=== PATIENT | female | born 1930 | race Caucasian/White ===

== ENCOUNTER 2016-12-14 18:01 | Emergency (ER) | payer OTHER ==
--- NOTE | 2016-12-14 19:00 | REPUSA ---
CLINICAL HISTORY: Trauma. TECHNIQUE: Multiple axial CT images were obtained through the brain without IV contrast material. COMMENTS: There is normal configuration of sella turcica. There are no intra or extra-axial collections. There is no mass effect or midline shift. There is no evidence of hematoma formation. No hydrocephalus is p resent. The ventricles are symmetrical. No abnormal calcifications are present. There is diffuse age-appropriate cerebellar and cerebral atrophy with proportionally dilated ventricl es and cortical sulci. There are bilateral confluent periventricular and subcortical white matter hypolucencies compatible w ith chronic microvascular disease. Otherwise, no significant focal abnormalities are seen either in the posterior fossa or supratentoria l compartment. IMPRESSION: 1. Cerebellar and cerebral atrophy. 2. Chronic microvascular disease. 3. No evidence of acute intracranial pathology. Thank you for your kind referral of this patient.
--- NOTE | 2016-12-14 19:10 | REPUSA ---
CLINICAL HISTORY: Neck pain. Trauma TECHNIQUE: Multiple axial images were obtained through the cervical spine. Images were also reconstru cted in coronal and sagittal planes. The study was performed without IV contrast. COMMENTS: There is no fracture or spondylolisthesis visualized. The paraspinal soft tissues are unremarkable. T here are no lytic or blastic lesions. Straightening of cervical lordosis is seen, suggesting muscular spasm. There is evidence of multileve l disk disease, demonstrated by this is most severe at C3-C4 and C5-6 where more moderate loss of dis c side present and broad-based posterior disc is convex is seen producing moderate to severe bilatera l foraminal and canal stenosis osteophytosis and endplate sclerosis. IMPRESSION: 1. No fracture or spondylolisthesis. 2. Straightening of cervical lordosis is seen, suggesting muscular spasm. 3. Multilevel spondylosis most severe at C3-C4 and C5-6. Thank you for your kind referral of this patient.
--- NOTE | 2016-12-14 19:10 | REPUSA ---
HISTORY: Trauma. TECHNIQUE: Multiple thin section helically-acquired axially-displayed and helically acquired coronall y displayed computed tomographic images of the face are obtained from the mandible through the fronta l sinuses, with images obtained at soft tissue and bone window. 2D reformatted images were performed. FINDINGS: Normal bony mineralization. No fractures. Left cheek swelling is seen. Normal orbits. Left maxillary sinusitis is seen. Normal, clear paranasal sinuses otherwise. Normal oral and nasal cavities. Normal infratemporal fossa and deep parapharyngeal spaces with normal muscles of mastication. Normal parotid and submandibular glands. IMPRESSION: Left cheek swelling is seen. Left maxillary sinusitis Thank you for your kind referral of this patient
[2016-12-14] MEDS ORDERED: MORPHINE 2 MG/ML 1ML SYRINGE As Ordered ONE ×2 (19:50→21:05)
[2016-12-14] MEDS ORDERED: ONDANSETRON 4MG/2ML VIAL (J2405) As Ordered ONE (19:50)
[2016-12-14 20:15] LABS: BASO % 0.5 % (0.0-1.0); EOS # 0.2 K/mm3 (0.0-0.50); EOS % 1.6 % (0.0-3.0); LARGE UNSTAINED CELL # 0.1 K/mm3 (0.0-0.4); LARGE UNSTAINED CELL % 1.1 % (0.0-4.0); LYMPH # 1.2 K/mm3 (1.5-4.5); LYMPH % 10.4 % (24.0-44.0); MEAN CORPUSCULAR HGB CONC 32.4 g/dl (32.0-36.5); MEAN CORPUSCULAR VOLUME 95.7 fl (80.0-96.0); MONO # 0.5 K/mm3 (0.0-0.8); MONO % 5.1 % (0.0-5.0); NEUTROPHILS # 8.3 K/mm3 (1.8-7.7); NEUTROPHILS % 81.4 % (36.0-66.0); PLATELET COUNT, AUTOMATED 208 k/mm3 (150-450); RED CELL DISTRIBUTION WIDTH 13.5 % (11.5-14.5); WHITE BLOOD COUNT 10.2 K/mm3 (4.0-10.0)
[2016-12-14 20:21] LABS: INR 0.93
[2016-12-14 20:37] LABS: ALBUMIN 3.5 GM/DL (3.2-5.2); ALBUMIN/GLOBULIN RATIO 1.25 (1.00-1.93); ALKALINE PHOSPHATASE 121 U/L (45-117); ALT/SGPT 21 U/L (12-78); ANION GAP 9 MEQ/L (8-16); AST/SGOT 20 U/L (15-37); BILIRUBIN,DIRECT < 0.1 MG/DL (0.0-0.2); BILIRUBIN,TOTAL 0.4 MG/DL (0.2-1.0); BLOOD UREA NITROGEN 25 MG/DL (7-18); CALCIUM LEVEL 9.8 MG/DL (8.8-10.2); CARBON DIOXIDE LEVEL 25 MEQ/L (21-32); CHLORIDE LEVEL 109 MEQ/L (98-107); CREATININE FOR GFR 1.18 MG/DL (0.55-1.02); GLOMERULAR FILTRATION RATE 46.1 (>32); GLUCOSE, FASTING 107 MG/DL (83-110); POTASSIUM SERUM 4.7 MEQ/L (3.5-5.1); SODIUM LEVEL 143 MEQ/L (136-145); TOTAL PROTEIN 6.3 GM/DL (6.4-8.2)
[2016-12-14] MEDS ORDERED: NORCO 5/325MG TABLET (BULK) As Ordered ONE (21:07)
--- NOTE | 2016-12-14 22:15 | EDDOCDS ---
Nurse's Notes [facility] Name: Susan Mantilla Age: 86 yrs Sex: Female : 1930 Arrival Date: 12/14/2016 Time: 18:01 Bed 17 Private MD: Diagnosis: Fall on same level from slipping, tripping and stumbling;Contusion of left eyelid and periocular area;Contusion of lip;Contusion of nose Presentation: 12/14 18:04 Presenting complaint: EMS states: lightheaded while coming out of the bathroom and fell hs1 to the floor. Patient normally confused per family members at the house per EMS. Patient has black eye starting and bruising to left eye seen. Patient is not taking any blood thinners. Adult Sepsis Screening: The patient does not have new or worsening altered mentation. Patient's respiratory rate is less than 22. Systolic blood pressure is greater than 100. Patient has a qSOFA score of 0- Negative Sepsis Screen. Suicide/Homicide risk assessment- Unable to assess, the patient has an altered level of consciousness. Status: Patient is not a direct customer service representative or dependent. Transition of care: patient was not received from another setting of care. 18:04 Acuity: KOFI Level 3 hs1 18:04 Method Of Arrival: Ambulance hs1 Triage Assessment: 18:14 General: Appears in no apparent distress, Behavior is cooperative. Pain: Unable to use hs1 pain scale. Does not appear to understand pain scale. Neurological: Level of Consciousness is awake, alert, obeys commands, Oriented to person, per family member patient history of Alzheimer's. Per family at bedside patient confused and having a spell of worsening confusion. . Respiratory: No deficits noted. Airway is patent Respiratory effort is even, unlabored, Respiratory pattern is regular, symmetrical. Derm: Bruising that is bright red, dark purple, on left eye, mouth and neck. Historical: - Allergies: No known drug Allergies; - Home Meds: 1. acetaminophen-codeine 300-30 mg Oral tab 1 tab nightly 2. fluoxetine 40 mg Oral cap 1 cap once daily 3. aspirin 81 mg Oral tab 1 tab once daily 4. levothyroxine 88 mcg Oral cap 1 cap nightly 5. quetiapine 50 mg oral tab 1 tab daily 6. Colace 100 mg oral cap 2 caps nightly 7. FiberCon 625 mg Oral tab 625 mg as needed - PMHx: Dementia; Thyroid problem; Arthritis; Alzheimers; - PSHx: Bladder suspension; Hysterectomy; - Social history: Smoking status: Patient states was never smoker of tobacco. No barriers to communication noted, The patient speaks fluent Frisian, Speaks appropriately for age. - Family history: Not pertinent. - : The pt / caregiver states he / she is not on anticoagulants. Home medication list is obtained from the patient, Unable to Verify Home Med List with the patient / caregiver. - Exposure Risk Screening:: None identified. Screenin:19 Screening information is obtained from family members. Fall risk: At risk due to age, hs1 apparent cognitive impairment, prior history of falls, The following interventions are performed due to a positive Fall Risk Screen: Fall Risk is added to Special Handling on the patient Summary Screen. A Fall Risk Bracelet was applied to the patient. Side Rails are placed in the up position. A Call Ballard is given with instruction to call for help when getting out of bed. Fall Alert bracelet is placed on the patient. Assistance ADL's: Requires assistance with meal preparation, this assistance is provided by family members, bathing, assistance is provided by family members, housework, assistance is provided by family members, medication administration, assistance is provided by family members. Abuse/DV Screen: The patient / caregiver reports he/she is: not in a situation that causes fear, pain or injury. Nutritional screening: No deficits noted. Advance Directives: Currently, there is a health care proxy, Federica Maxwell. home support is adequate. Assessment: 18:51 General: Appears in no apparent distress, Behavior is pleasant, confused. . Pain: hs1 Location: left eye and mouth. Respiratory: Airway is patent Respiratory effort is even, unlabored, Respiratory pattern is regular, symmetrical. Derm: Skin is pink, warm & dry. normal. 19:30 General: Appears in no apparent distress, Behavior is cooperative. Pain: Location: neck js15 and mouth and left eye; "all over" Pain currently is 6 out of 10 on a pain scale. Neurological: Level of Consciousness is awake, alert, confused, Oriented to person. Cardiovascular: Rhythm is regular. Respiratory: Airway is patent Respiratory effort is even, unlabored, Respiratory pattern is regular, symmetrical, Breath sounds are clear bilaterally. Derm: Skin is pink, warm & dry. Injury Description: Abrasion sustained to mouth Bruise sustained to left eye. 20:30 Reassessment: Patient appears in no apparent distress at this time. Pt resting on js15 stretcher with daughter at bedside; respirations even and unlabored; skin pink, warm, dry. 21:37 Reassessment: Patient appears in no apparent distress at this time. Pt awake and alert, js15 resting on stretcher, talking to daughter at bedside; respirations even and unlabored; skin pink, warm, dry. Vital Signs: 18:12 BP 144 / 60; Pulse 68; Resp 18; Pulse Ox 95% on R/A; Weight 72.57 kg; Height 5 ft. 8 hs1 in. (172.72 cm); 19:05 Pulse 64 MON; Pulse Ox 99% ; js15 19:06 BP 122 / 59 (auto/); js15 19:35 Pulse 64 MON; Pulse Ox 98% ; js15 19:36 BP 110 / 57 (auto/); js15 20:06 BP 126 / 57 (auto/); js15 20:06 Pulse 64 MON; Pulse Ox 99% ; js15 20:36 Pulse 64 MON; Pulse Ox 98% ; js15 20:36 BP 124 / 56 (auto/); js15 21:05 Pulse 66 MON; Pulse Ox 97% ; js15 21:06 BP 114 / 58 (auto/); js15 21:36 BP 125 / 61 (auto/); js15 21:36 Pulse 70 MON; Pulse Ox 99% ; js15 21:59 BP 117 / 58 (auto/); js15 22:00 Pulse 70 MON; Resp 20; Temp 98.2(O); Pulse Ox 99% ; Pain 6/10; js15 18:12 Body Mass Index 24.33 (72.57 kg, 172.72 cm) hs1 Vitals: 18:12 Log In Time N/A - ambulance arrival. hs1 ED Course: 18:02 Patient visited by Lili Conklin, Branch Maker. deg 18:02 Cordelia Smyth, ELIZABETH is Primary Nurse. deg 18:02 Patient moved to Waiting deg 18:02 Patient moved to 17 deg 18:08 [facility]. ke 18:09 Triage Initiated hs1 18:10 Patient visited by Ramakrishna Christiansen FNP. ke 18:20 The patient / caregiver is instructed regarding the plan of care and ED course. hs1 18:25 Patient visited by Ramakrishna Christiansen FNP. ke 19:04 Patient visited by James Martinez PCA. kb5 19:10 [facility] Payment Agreement was scanned into [email or web address] and attached to record. ks16 19:18 EKG done. (by ED staff). Reviewed by Ramakrishna MEEHAN. kb5 19:19 Patient visited by James Martinez PCA. kb5 19:25 CT Head Without Contrast Returned. EDMS 19:25 CT Maxilofacial W/out Contrast Returned. EDMS 19:25 CT Spine,Cervical W/o Contrast Returned. EDMS 19:30 Inserted saline lock: 20 gauge in right wrist. js15 19:48 Patient visited by Ramakrishna Christiansen FNP. ke 20:12 Patient visited by Ramakrishna Christiansen FNP. ke 20:35 Patient visited by Ramakrishna Christiansen FNP. ke 20:43 Primary Nurse role handed off by Cordelia Smyth RN kim 21:39 No procedures done that require assistance. js15 Administered Medications: 19:56 Drug: morphine 2 mg [morphine 2 mg/mL intravenous cartridge (1 mL)] Route: IVP; Site: js15 right wrist; 19:57 Drug: Ondansetron 4 mg [ondansetron HCl 2 mg/mL intravenous solution (2 mL)] Route: js15 IVP; Site: right wrist; 21:34 Drug: morphine 2 mg [morphine 2 mg/mL intravenous cartridge (1 mL)] Route: IVP; Site: js15 right wrist; 21:40 Drug: HYDROcodone-acetaminophen 4 pack- 1 packets [hydrocodone 5 mg-acetaminophen 325 js15 mg tablet (1 tabs)] {Co-Signature: ttb (Shayla Cain RN).} Route: PO; Order Results: Lab Order: CBC with Diff; SPEC'M 12/14/16 20:02 Test: WHITE BLOOD COUNT; Value: 10.2; Range: 4.0-10.0; Abnormal: Above high normal; Units: K/mm3; Status: F Test: RED BLOOD COUNT; Value: 3.78; Range: 4.00-5.40; Abnormal: Below low normal; Units: M/mm3; Status: F Test: HEMOGLOBIN; Value: 11.7; Range: 12.0-16.0; Abnormal: Below low normal; Units: g/dl; Status: F Test: HEMATOCRIT; Value: 36.2; Range: 36.0-47.0; Units: %; Status: F Test: MEAN CORPUSCULAR VOLUME; Value: 95.7; Range: 80.0-96.0; Units: fl; Status: F Test: MEAN CORPUSCULAR HEMOGLOBIN; Value: 31.0; Range: 27.0-33.0; Units: pg; Status: F Test: MEAN CORPUSCULAR HGB CONC; Value: 32.4; Range: 32.0-36.5; Units: g/dl; Status: F Test: RED CELL DISTRIBUTION WIDTH; Value: 13.5; Range: 11.5-14.5; Units: %; Status: F Test: PLATELET COUNT, AUTOMATED; Value: 208; Range: 150-450; Units: k/mm3; Status: F Test: NEUTROPHILS %; Value: 81.4; Range: 36.0-66.0; Abnormal: Above high normal; Units: %; Status: F Test: LYMPH %; Value: 10.4; Range: 24.0-44.0; Abnormal: Below low normal; Units: %; Status: F Test: MONO %; Value: 5.1; Range: 0.0-5.0; Abnormal: Above high normal; Units: %; Status: F Test: EOS %; Value: 1.6; Range: 0.0-3.0; Units: %; Status: F Test: BASO %; Value: 0.5; Range: 0.0-1.0; Units: %; Status: F Test: LARGE UNSTAINED CELL %; Value: 1.1; Range: 0.0-4.0; Units: %; Status: F Test: NEUTROPHILS #; Value: 8.3; Range: 1.8-7.7; Abnormal: Above high normal; Units: K/mm3; Status: F Test: LYMPH #; Value: 1.2; Range: 1.5-4.5; Abnormal: Below low normal; Units: K/mm3; Status: F Test: MONO #; Value: 0.5; Range: 0.0-0.8; Units: K/mm3; Status: F Test: EOS #; Value: 0.2; Range: 0.0-0.50; Units: K/mm3; Status: F Test: BASO #; Value: 0.0; Range: 0.0-0.2; Units: K/mm3; Status: F Test: LARGE UNSTAINED CELL #; Value: 0.1; Range: 0.0-0.4; Units: K/mm3; Status: F Lab Order: Cardiac Injury Profile; SPEC'M 12/14/16 20:02 Test: CPK CREATINE PHOSPHOKINASE; Value: 57; Range: 26-192; Units: U/L; Status: F Test: CK-MB VALUE MASS; Value: 1.9; Range: 0.0-3.6; Units: NG/ML; Status: F Test: MB/CK RELATIVE INDEX; Value: 3.33; Range: < OR =4; Status: F Test Note: ; DIAGNOSIS CRITERIA MMB ng/ml Relative Index (RI) NON-AMI < or = 5 N/A NASH ZONE > 5 < or = 4 AMI > 5 > 4 Lab Order: Liver Profile; SPEC'M 12/14/16 20:02 Test: AST/SGOT; Value: 20; Range: 15-37; Units: U/L; Status: F Test: ALT/SGPT; Value: 21; Range: 12-78; Units: U/L; Status: F Test: ALKALINE PHOSPHATASE; Value: 121; Range: 45-117; Abnormal: Above high normal; Units: U/L; Status: F Test: BILIRUBIN,TOTAL; Value: 0.4; Range: 0.2-1.0; Units: MG/DL; Status: F Test: BILIRUBIN,DIRECT; Value: < 0.1; Range: 0.0-0.2; Units: MG/DL; Status: F Test: TOTAL PROTEIN; Value: 6.3; Range: 6.4-8.2; Abnormal: Below low normal; Units: GM/DL; Status: F Test: ALBUMIN; Value: 3.5; Range: 3.2-5.2; Units: GM/DL; Status: F Test: ALBUMIN/GLOBULIN RATIO; Value: 1.25; Range: 1.00-1.93; Status: F Lab Order: MED Profile; SPEC'M 12/14/16 20:02 Test: GLUCOSE, FASTING; Value: 107; Range: 83-110; Units: MG/DL; Status: F Test: BLOOD UREA NITROGEN; Value: 25; Range: 7-18; Abnormal: Above high normal; Units: MG/DL; Status: F Test: CREATININE FOR GFR; Value: 1.18; Range: 0.55-1.02; Abnormal: Above high normal; Units: MG/DL; Status: F Test: GLOMERULAR FILTRATION RATE; Value: 46.1; Range: >32; Status: F Test: SODIUM LEVEL; Value: 143; Range: 136-145; Units: MEQ/L; Status: F Test: POTASSIUM SERUM; Value: 4.7; Range: 3.5-5.1; Units: MEQ/L; Status: F Test: CHLORIDE LEVEL; Value: 109; Range: 98-107; Abnormal: Above high normal; Units: MEQ/L; Status: F Test: CARBON DIOXIDE LEVEL; Value: 25; Range: 21-32; Units: MEQ/L; Status: F Test: ANION GAP; Value: 9; Range: 8-16; Units: MEQ/L; Status: F Test: CALCIUM LEVEL; Value: 9.8; Range: 8.8-10.2; Units: MG/DL; Status: F Test Note: ; Units are mL/min/1.73 m2 Chronic Kidney Disease Staging per NKF: Stage I & II GFR >=60 Normal to Mildly Decreased Stage III GFR 30-59 Moderately Decreased Stage IV GFR 15-29 Severely Decreased Stage V GFR <15 Very Little GFR Left ESRD GFR <15 on RDA Lab Order: Thyroid Stimulating Hormone; SPEC'M 12/14/16 20:02 Test: THYROID STIMULATING HORMONE; Value: 0.747; Range: 0.358-3.740; Units: uIU/ML; Status: F Lab Order: Troponin; SPEC'M 12/14/16 20:02 Test: TROPONIN I; Value: < 0.02; Range: < 0.10; Units: NG/ML; Status: F Test Note: ; Troponin I Reference Interval for IntervalZero LOCI: 99th Percentile= 0.00-0.045 ng/ml Risk Stratification: <= 0.10 ng/ml Decreased Risk for Adverse Clinical Events. 0.10-1.50 ng/ml Increased Risk for Adverse Clinical Events. Evaluation of additional criterion and/or repeat testing in 2-6 hours is suggested to rule out myocardial damage. >= 1.50 ng/ml Indicative of Myocardial Injury. Lab Order: PT/INR; SPEC'M 12/14/16 20:02 Test: PROTHROMBIN TIME; Value: 12.6; Range: 12.3-14.5; Units: SECONDS; Status: F Test: INR; Value: 0.93; Status: F Test Note: ; THERAPUTIC HUMAN INR VALUES INDICATIONS NORMAL RANGES PROPHYLAXIS/TREATMENT OF: VENOUS THROMBOSIS 2.0-3.0 PULMONARY EMBOLISM 2.0-3.0 PREVENTION OF SYSTEMIC EMBOLISM FROM: TISSUE HEART VALVES 2.0-3.0 ACUTE MYOCARDIAL INFARCTION 2.0-3.0 VALVULAR HEART DISEASE 2.0-3.0 ATRIAL FIBRILLATION 2.0-3.0 MECHANICAL VALVES(HIGH RISK) 2.5-3.5 RECURRENT MYOCARDIAL INFARCTION 2.5-3.5 Lab Order: Fingerstick Blood Sugar; SPEC'M 12/14/16 19:45 Test: BEDSIDE GLUCOSE; Value: 92; Range: 83-110; Units: MG/DL; Status: F Radiology Order: CT Head Without Contrast Test: CT Head Without Contrast REASON FOR EXAMINATION: Trauma; ; CLINICAL HISTORY: Trauma.; TECHNIQUE: Multiple axial CT images were obtained through the brain without IV contrast material.; COMMENTS:; There is normal configuration of sella turcica. There are no intra or extra-axial collections. There; is no mass effect or midline shift. There is no evidence of hematoma formation. No hydrocephalus is p; resent. The ventricles are symmetrical. No abnormal calcifications are present.; There is diffuse age-appropriate cerebellar and cerebral atrophy with proportionally dilated ventricl; es and cortical sulci.; There are bilateral confluent periventricular and subcortical white matter hypolucencies compatible w; ith chronic microvascular disease.; Otherwise, no significant focal abnormalities are seen either in the posterior fossa or supratentoria; l compartment.; IMPRESSION:; 1. Cerebellar and cerebral atrophy.; 2. Chronic microvascular disease.; 3. No evidence of acute intracranial pathology.; Thank you for your kind referral of this patient.; ; ; Radiology Order: CT Maxilofacial W/out Contrast Test: CT Maxilofacial W/out Contrast REASON FOR EXAMINATION: Trauma; ; HISTORY: Trauma.; TECHNIQUE: Multiple thin section helically-acquired axially-displayed and helically acquired coronall; y displayed computed tomographic images of the face are obtained from the mandible through the fronta; l sinuses, with images obtained at soft tissue and bone window. 2D reformatted images were performed.; ; FINDINGS:; Normal bony mineralization. No fractures. Left cheek swelling is seen.; Normal orbits.; Left maxillary sinusitis is seen. Normal, clear paranasal sinuses otherwise.; Normal oral and nasal cavities.; Normal infratemporal fossa and deep parapharyngeal spaces with normal muscles of mastication. Normal; parotid and submandibular glands.; IMPRESSION:; Left cheek swelling is seen.; Left maxillary sinusitis; Thank you for your kind referral of this patient; ; Radiology Order: CT Spine,Cervical W/o Contrast Test: CT Spine,Cervical W/o Contrast REASON FOR EXAMINATION: Trauma; ; CLINICAL HISTORY: Neck pain. Trauma; TECHNIQUE: Multiple axial images were obtained through the cervical spine. Images were also reconstru; cted in coronal and sagittal planes. The study was performed without IV contrast.; COMMENTS:; There is no fracture or spondylolisthesis visualized. The paraspinal soft tissues are unremarkable. T; here are no lytic or blastic lesions.; Straightening of cervical lordosis is seen, suggesting muscular spasm. There is evidence of multileve; l disk disease, demonstrated by this is most severe at C3-C4 and C5-6 where more moderate loss of dis; c side present and broad-based posterior disc is convex is seen producing moderate to severe bilatera; l foraminal and canal stenosis osteophytosis and endplate sclerosis.; IMPRESSION:; 1. No fracture or spondylolisthesis.; 2. Straightening of cervical lordosis is seen, suggesting muscular spasm.; 3. Multilevel spondylosis most severe at C3-C4 and C5-6.; Thank you for your kind referral of this patient.; ; Outcome: 20:52 Discharge ordered by Provider. ke 21:38 Discharge Assessment: Patient awake and alert. patient administered narcotics - yes. Pt js15 provided with safe discharge. The following High Risk Discharge criteria are identified: None. Discharged to home via wheelchair, with family. Condition: unchanged. Discharge instructions given to patient, daughter Instructed on discharge instructions, follow up and referral plans. medication usage, no driving heavy equipment, Rest, Ice, Compression and Elevation. Demonstrated understanding of instructions, medications, Pt was receptive of discharge instructions/ teaching. Prescriptions given X 1. CT Study completed. Property sent home with patient. 22:14 Patient left the ED. js15 Signatures: Dispatcher [employer] EDMS Lili Conklin, Branch Maker Unit deg Ramakrishna Christiansen, RN LPN CNA RN LPN CNA James Sage, MAIL HANDLER EQUIPMENT OPERATOR MAIL HANDLER EQUIPMENT OPERATOR kb5 Cordelia Smyth, RN RN hs1 Mia Damon, MAIL HANDLER EQUIPMENT OPERATOR MAIL HANDLER EQUIPMENT OPERATOR Che Almendarez RN RN js15 Shannan Snider, Reg Reg ks16 Shayla Cain RN ttb MTDD
--- NOTE | 2016-12-14 22:15 | EDDOCDS ---
Physician Documentation [facility] Name: Susan Mantilla Age: 86 yrs Sex: Female : 1930 Arrival Date: 12/14/2016 Time: 18:01 Bed 17 Private MD: Disposition: 12/14/16 20:52 Discharged to Home/Self Care. Impression: Fall on same level from slipping, tripping and stumbling, Contusion of left eyelid and periocular area, Contusion of lip, Contusion of nose. - Condition is Stable. - Discharge Instructions: Elastic Bandage and RICE, Contusion, Head Injury, Adult. - Prescriptions for [place] 5- 325 mg Oral Tablet - take 1 tablet by ORAL route every 6 hours As needed MDD: 4 tabs; 20 tablet. - Medication Reconciliation, Local Pharmacy Hours form. - Follow up: Private Physician; When: 2 - 3 days; Reason: Recheck today's complaints, Continuance of care. - Problem is new. - Symptoms are unchanged. Historical: - Allergies: No known drug Allergies; - Home Meds: 1. acetaminophen-codeine 300-30 mg Oral tab 1 tab nightly 2. fluoxetine 40 mg Oral cap 1 cap once daily 3. aspirin 81 mg Oral tab 1 tab once daily 4. levothyroxine 88 mcg Oral cap 1 cap nightly 5. quetiapine 50 mg oral tab 1 tab daily 6. Colace 100 mg oral cap 2 caps nightly 7. FiberCon 625 mg Oral tab 625 mg as needed - PMHx: Dementia; Thyroid problem; Arthritis; Alzheimers; - PSHx: Bladder suspension; Hysterectomy; - Social history: Smoking status: Patient states was never smoker of tobacco. No barriers to communication noted, The patient speaks fluent [place]ib[place]ian, Speaks appropriately for age. - Family history: Not pertinent. - : The pt / caregiver states he / she is not on anticoagulants. Home medication list is obtained from the patient, Unable to Verify Home Med List with the patient / caregiver. - Exposure Risk Screening:: None identified. Vital Signs: 12/14 18:12 BP 144 / 60; Pulse 68; Resp 18; Pulse Ox 95% on R/A; Weight 72.57 kg / 159.99 lbs; hs1 Height 5 ft. 8 in. (172.72 cm); 19:05 Pulse 64 MON; Pulse Ox 99% ; js15 19:06 BP 122 / 59 (auto/); js15 19:35 Pulse 64 MON; Pulse Ox 98% ; js15 19:36 BP 110 / 57 (auto/); js15 20:06 BP 126 / 57 (auto/); js15 20:06 Pulse 64 MON; Pulse Ox 99% ; js15 20:36 Pulse 64 MON; Pulse Ox 98% ; js15 20:36 BP 124 / 56 (auto/); js15 21:05 Pulse 66 MON; Pulse Ox 97% ; js15 21:06 BP 114 / 58 (auto/); js15 21:36 BP 125 / 61 (auto/); js15 21:36 Pulse 70 MON; Pulse Ox 99% ; js15 21:59 BP 117 / 58 (auto/); js15 22:00 Pulse 70 MON; Resp 20; Temp 98.2(O); Pulse Ox 99% ; Pain 6/10; js15 18:12 Body Mass Index 24.33 (72.57 kg, 172.72 cm) hs1 MDM: 18:27 Community Worker/Pulse Ox/q 15 min VS ordered. ke 18:27 Accucheck ordered. ke 18:27 IV Saline Lock ordered. ke 18:27 Oxygen at 4L/Min NC or Home dosage ordered. ke 18:27 Rhythm Strip to chart ordered. ke 18:27 CBC with Diff Ordered. EDMS 18:27 Cardiac Injury Profile Ordered. EDMS 18:27 Liver Profile Ordered. EDMS 18:27 MED Profile Ordered. EDMS 18:27 Thyroid Stimulating Hormone Ordered. EDMS 18:27 Troponin Ordered. EDMS 18:27 PT/INR Ordered. EDMS 18:28 Chest, 1 View Ordered. EDMS 18:28 CT Head Without Contrast Ordered. EDMS 18:28 ECG WITH READING ER PHYS+CARDIAG ordered. EDMS 18:29 CT Maxilofacial W/out Contrast Ordered. EDMS 18:29 CT Spine,Cervical W/o Contrast Ordered. EDMS 19:10 Financial registration complete. [email or web address] 19:10 [place] Payment Agreement was scanned into [employer] and attached to record. ks16 19:49 Ondansetron 4 mg IVP once ordered. ke 19:49 morphine 2 mg IVP once ordered. ke 19:56 Fingerstick Blood Sugar Ordered. EDMS 20:46 morphine 2 mg IVP once ordered. ke 20:47 CBC with Diff Reviewed. ke 20:47 Liver Profile Reviewed. ke 20:47 MED Profile Reviewed. ke 20:47 Cardiac Injury Profile Reviewed. ke 20:47 Thyroid Stimulating Hormone Reviewed. ke 20:47 Troponin Reviewed. ke 20:47 PT/INR Reviewed. ke 20:47 Fingerstick Blood Sugar Reviewed. ke 20:47 CT Head Without Contrast Reviewed. ke 20:47 CT Maxilofacial W/out Contrast Reviewed. ke 20:47 CT Spine,Cervical W/o Contrast Reviewed. ke 20:52 HYDROcodone-acetaminophen 4 pack- 5 mg-325 mg 1 packets PO Per package directions; ke Dispense with patient. 1 po q4h prn for pain ordered. Administered Medications: 19:56 Drug: morphine 2 mg [morphine 2 mg/mL intravenous cartridge (1 mL)] Route: IVP; Site: js15 right wrist; 19:57 Drug: Ondansetron 4 mg [ondansetron HCl 2 mg/mL intravenous solution (2 mL)] Route: js15 IVP; Site: right wrist; 21:34 Drug: morphine 2 mg [morphine 2 mg/mL intravenous cartridge (1 mL)] Route: IVP; Site: js15 right wrist; 21:40 Drug: HYDROcodone-acetaminophen 4 pack- 1 packets [hydrocodone 5 mg-acetaminophen 325 js15 mg tablet (1 tabs)] {Co-Signature: ttb (Shayla Cain RN).} Route: PO; Signatures: Dispatcher [employer] Ramakrishna Bradford, RECOVERY RN RECOVERY RN Cordelia Albright RN RN hs1 Che Nguyen RN RN js15 Shannan Snider, Reg Reg ks16 Shayla Cain RN ttmaurice The chart was reviewed and I authenticate all verbal orders and agree with the evaluation and treatment provided.Attachments: 19:10 [facility] Payment Agreement [email or web address] MTDD
--- NOTE | 2016-12-15 11:25 | REP ---
Clinical: Trauma . Comparison: 11/26/2011 . Technique: PA. Findings: The mediastinum and cardiac silhouette are normal. The lung hernandes are clear and without acute consolidation, effusion, or pneumothorax. The skeletal structures are intact and normal. Impression: 1. No acute cardiopulmonary process. Signed by Ever Hernandez MD 12/15/2016 02:46 A
--- NOTE | 2016-12-15 20:50 | ECGEPIP ---
Stationary ECG Study [facility] - ED Test Date: 2016-12-14 Pat Name: FAB FREEMAN Department: Room: - Gender: F Examination Grader: MARIA : 1930 Requested By: ROMANA MEEHAN Order Number: [id number] Reading MD: Jessica Love Measurements Intervals [place] Rate: 69 P: 39 IN: 168 QRS: -7 QRSD: 89 T: 45 QT: 382 QTc: 410 Interpretive Statements SINUS RHYTHM NSTTW ABNORMALITY BASELINE ARTIFACT LIMITS INTERPRETATION Electronically Signed On 12-15-2016 20:49:55 EST by Jessica Love
--- NOTE | 2016-12-16 23:15 | EDDOCDS ---
Physician Documentation [facility] Name: Susan Mantilla Age: 86 yrs Sex: Female : 1930 Arrival Date: 12/14/2016 Time: 18:01 Bed 17 Private MD: Disposition: 12/14/16 20:52 Discharged to Home/Self Care. Impression: Fall on same level from slipping, tripping and stumbling, Contusion of left eyelid and periocular area, Contusion of lip, Contusion of nose. - Condition is Stable. - Discharge Instructions: Elastic Bandage and RICE, Contusion, Head Injury, Adult. - Prescriptions for [place] 5- 325 mg Oral Tablet - take 1 tablet by ORAL route every 6 hours As needed MDD: 4 tabs; 20 tablet. - Medication Reconciliation, Local Pharmacy Hours form. - Follow up: Private Physician; When: 2 - 3 days; Reason: Recheck today's complaints, Continuance of care. - Problem is new. - Symptoms are unchanged. Historical: - Allergies: No known drug Allergies; - Home Meds: 1. acetaminophen-codeine 300-30 mg Oral tab 1 tab nightly 2. fluoxetine 40 mg Oral cap 1 cap once daily 3. aspirin 81 mg Oral tab 1 tab once daily 4. levothyroxine 88 mcg Oral cap 1 cap nightly 5. quetiapine 50 mg oral tab 1 tab daily 6. Colace 100 mg oral cap 2 caps nightly 7. FiberCon 625 mg Oral tab 625 mg as needed - PMHx: Dementia; Thyroid problem; Arthritis; Alzheimers; - PSHx: Bladder suspension; Hysterectomy; - Social history: Smoking status: Patient states was never smoker of tobacco. No barriers to communication noted, The patient speaks fluent Japanese, Speaks appropriately for age. - Family history: Not pertinent. - : The pt / caregiver states he / she is not on anticoagulants. Home medication list is obtained from the patient, Unable to Verify Home Med List with the patient / caregiver. - Exposure Risk Screening:: None identified. Vital Signs: 12/14 18:12 BP 144 / 60; Pulse 68; Resp 18; Pulse Ox 95% on R/A; Weight 72.57 kg / 159.99 lbs; hs1 Height 5 ft. 8 in. (172.72 cm); 19:05 Pulse 64 MON; Pulse Ox 99% ; js15 19:06 BP 122 / 59 (auto/); js15 19:35 Pulse 64 MON; Pulse Ox 98% ; js15 19:36 BP 110 / 57 (auto/); js15 20:06 BP 126 / 57 (auto/); js15 20:06 Pulse 64 MON; Pulse Ox 99% ; js15 20:36 Pulse 64 MON; Pulse Ox 98% ; js15 20:36 BP 124 / 56 (auto/); js15 21:05 Pulse 66 MON; Pulse Ox 97% ; js15 21:06 BP 114 / 58 (auto/); js15 21:36 BP 125 / 61 (auto/); js15 21:36 Pulse 70 MON; Pulse Ox 99% ; js15 21:59 BP 117 / 58 (auto/); js15 22:00 Pulse 70 MON; Resp 20; Temp 98.2(O); Pulse Ox 99% ; Pain 6/10; js15 18:12 Body Mass Index 24.33 (72.57 kg, 172.72 cm) hs1 MDM: 18:27 Casino Gaming Inspector/Pulse Ox/q 15 min VS ordered. ke 18:27 Accucheck ordered. ke 18:27 IV Saline Lock ordered. ke 18:27 Oxygen at 4L/Min NC or Home dosage ordered. ke 18:27 Rhythm Strip to chart ordered. ke 18:27 CBC with Diff Ordered. EDMS 18:27 Cardiac Injury Profile Ordered. EDMS 18:27 Liver Profile Ordered. EDMS 18:27 MED Profile Ordered. EDMS 18:27 Thyroid Stimulating Hormone Ordered. EDMS 18:27 Troponin Ordered. EDMS 18:27 PT/INR Ordered. EDMS 18:28 Chest, 1 View Ordered. EDMS 18:28 CT Head Without Contrast Ordered. EDMS 18:28 ECG WITH READING ER PHYS+CARDIAG ordered. EDMS 18:29 CT Maxilofacial W/out Contrast Ordered. EDMS 18:29 CT Spine,Cervical W/o Contrast Ordered. EDMS 19:10 Financial registration complete. [email or web address] 19:10 [facility] Payment Agreement was scanned into [employer] and attached to record. ks16 19:49 Ondansetron 4 mg IVP once ordered. ke 19:49 morphine 2 mg IVP once ordered. ke 19:56 Fingerstick Blood Sugar Ordered. EDMS 20:46 morphine 2 mg IVP once ordered. ke 20:47 CBC with Diff Reviewed. ke 20:47 Liver Profile Reviewed. ke 20:47 MED Profile Reviewed. ke 20:47 Cardiac Injury Profile Reviewed. ke 20:47 Thyroid Stimulating Hormone Reviewed. ke 20:47 Troponin Reviewed. ke 20:47 PT/INR Reviewed. ke 20:47 Fingerstick Blood Sugar Reviewed. ke 20:47 CT Head Without Contrast Reviewed. ke 20:47 CT Maxilofacial W/out Contrast Reviewed. ke 20:47 CT Spine,Cervical W/o Contrast Reviewed. ke 20:52 HYDROcodone-acetaminophen 4 pack- 5 mg-325 mg 1 packets PO Per package directions; ke Dispense with patient. 1 po q4h prn for pain ordered. 12/15 10:48 T-Sheet-- Draft Copy was scanned into [employer] and attached to record. gb 10:49 ECG/EKG was scanned into [employer] and attached to record. gb Administered Medications: 12/14 19:56 Drug: morphine 2 mg [morphine 2 mg/mL intravenous cartridge (1 mL)] Route: IVP; Site: js15 right wrist; 19:57 Drug: Ondansetron 4 mg [ondansetron HCl 2 mg/mL intravenous solution (2 mL)] Route: js15 IVP; Site: right wrist; 21:34 Drug: morphine 2 mg [morphine 2 mg/mL intravenous cartridge (1 mL)] Route: IVP; Site: js15 right wrist; 21:40 Drug: HYDROcodone-acetaminophen 4 pack- 1 packets [hydrocodone 5 mg-acetaminophen 325 js15 mg tablet (1 tabs)] {Co-Signature: ttb (Shayla Cain RN).} Route: PO; Signatures: Dispatcher [employer] EDMS May Blackburn, Reg Reg gb Ramakrishna Christiansen, NUTRITION EDUCATOR NUTRITION EDUCATOR Cordelia Albright RN RN hs1 Che Nguyen RN RN js15 Shannan Snider, Reg Reg ks16 Shayla Cain RN ttmaurice The chart was reviewed and I authenticate all verbal orders and agree with the evaluation and treatment provided.Attachments: 19:10 [facility] Payment Agreement [email or web address] 12/15 10:48 T-Sheet-- Draft Copy gb 10:49 ECG/EKG gb Chart Complete MTDD
--- NOTE | 2016-12-16 23:15 | EDDOCDS ---
Physician Documentation [facility] Name: Susan Mantilla Age: 86 yrs Sex: Female : 1930 Arrival Date: 12/14/2016 Time: 18:01 Bed 17 Private MD: Disposition: 12/14/16 20:52 Discharged to Home/Self Care. Impression: Fall on same level from slipping, tripping and stumbling, Contusion of left eyelid and periocular area, Contusion of lip, Contusion of nose. - Condition is Stable. - Discharge Instructions: Elastic Bandage and RICE, Contusion, Head Injury, Adult. - Prescriptions for [place] 5- 325 mg Oral Tablet - take 1 tablet by ORAL route every 6 hours As needed MDD: 4 tabs; 20 tablet. - Medication Reconciliation, Local Pharmacy Hours form. - Follow up: Private Physician; When: 2 - 3 days; Reason: Recheck today's complaints, Continuance of care. - Problem is new. - Symptoms are unchanged. Historical: - Allergies: No known drug Allergies; - Home Meds: 1. acetaminophen-codeine 300-30 mg Oral tab 1 tab nightly 2. fluoxetine 40 mg Oral cap 1 cap once daily 3. aspirin 81 mg Oral tab 1 tab once daily 4. levothyroxine 88 mcg Oral cap 1 cap nightly 5. quetiapine 50 mg oral tab 1 tab daily 6. Colace 100 mg oral cap 2 caps nightly 7. FiberCon 625 mg Oral tab 625 mg as needed - PMHx: Dementia; Thyroid problem; Arthritis; Alzheimers; - PSHx: Bladder suspension; Hysterectomy; - Social history: Smoking status: Patient states was never smoker of tobacco. No barriers to communication noted, The patient speaks fluent Palestinian, Speaks appropriately for age. - Family history: Not pertinent. - : The pt / caregiver states he / she is not on anticoagulants. Home medication list is obtained from the patient, Unable to Verify Home Med List with the patient / caregiver. - Exposure Risk Screening:: None identified. Vital Signs: 12/14 18:12 BP 144 / 60; Pulse 68; Resp 18; Pulse Ox 95% on R/A; Weight 72.57 kg / 159.99 lbs; hs1 Height 5 ft. 8 in. (172.72 cm); 19:05 Pulse 64 MON; Pulse Ox 99% ; js15 19:06 BP 122 / 59 (auto/); js15 19:35 Pulse 64 MON; Pulse Ox 98% ; js15 19:36 BP 110 / 57 (auto/); js15 20:06 BP 126 / 57 (auto/); js15 20:06 Pulse 64 MON; Pulse Ox 99% ; js15 20:36 Pulse 64 MON; Pulse Ox 98% ; js15 20:36 BP 124 / 56 (auto/); js15 21:05 Pulse 66 MON; Pulse Ox 97% ; js15 21:06 BP 114 / 58 (auto/); js15 21:36 BP 125 / 61 (auto/); js15 21:36 Pulse 70 MON; Pulse Ox 99% ; js15 21:59 BP 117 / 58 (auto/); js15 22:00 Pulse 70 MON; Resp 20; Temp 98.2(O); Pulse Ox 99% ; Pain 6/10; js15 18:12 Body Mass Index 24.33 (72.57 kg, 172.72 cm) hs1 MDM: 18:27 Guitar Repair Technician/Pulse Ox/q 15 min VS ordered. ke 18:27 Accucheck ordered. ke 18:27 IV Saline Lock ordered. ke 18:27 Oxygen at 4L/Min NC or Home dosage ordered. ke 18:27 Rhythm Strip to chart ordered. ke 18:27 CBC with Diff Ordered. EDMS 18:27 Cardiac Injury Profile Ordered. EDMS 18:27 Liver Profile Ordered. EDMS 18:27 MED Profile Ordered. EDMS 18:27 Thyroid Stimulating Hormone Ordered. EDMS 18:27 Troponin Ordered. EDMS 18:27 PT/INR Ordered. EDMS 18:28 Chest, 1 View Ordered. EDMS 18:28 CT Head Without Contrast Ordered. EDMS 18:28 ECG WITH READING ER PHYS+CARDIAG ordered. EDMS 18:29 CT Maxilofacial W/out Contrast Ordered. EDMS 18:29 CT Spine,Cervical W/o Contrast Ordered. EDMS 19:10 Financial registration complete. [email or web address] 19:10 [facility] Payment Agreement was scanned into [employer] and attached to record. ks16 19:49 Ondansetron 4 mg IVP once ordered. ke 19:49 morphine 2 mg IVP once ordered. ke 19:56 Fingerstick Blood Sugar Ordered. EDMS 20:46 morphine 2 mg IVP once ordered. ke 20:47 CBC with Diff Reviewed. ke 20:47 Liver Profile Reviewed. ke 20:47 MED Profile Reviewed. ke 20:47 Cardiac Injury Profile Reviewed. ke 20:47 Thyroid Stimulating Hormone Reviewed. ke 20:47 Troponin Reviewed. ke 20:47 PT/INR Reviewed. ke 20:47 Fingerstick Blood Sugar Reviewed. ke 20:47 CT Head Without Contrast Reviewed. ke 20:47 CT Maxilofacial W/out Contrast Reviewed. ke 20:47 CT Spine,Cervical W/o Contrast Reviewed. ke 20:52 HYDROcodone-acetaminophen 4 pack- 5 mg-325 mg 1 packets PO Per package directions; ke Dispense with patient. 1 po q4h prn for pain ordered. 12/15 10:48 T-Sheet-- Draft Copy was scanned into [employer] and attached to record. gb 10:49 ECG/EKG was scanned into [employer] and attached to record. gb Administered Medications: 12/14 19:56 Drug: morphine 2 mg [morphine 2 mg/mL intravenous cartridge (1 mL)] Route: IVP; Site: js15 right wrist; 19:57 Drug: Ondansetron 4 mg [ondansetron HCl 2 mg/mL intravenous solution (2 mL)] Route: js15 IVP; Site: right wrist; 21:34 Drug: morphine 2 mg [morphine 2 mg/mL intravenous cartridge (1 mL)] Route: IVP; Site: js15 right wrist; 21:40 Drug: HYDROcodone-acetaminophen 4 pack- 1 packets [hydrocodone 5 mg-acetaminophen 325 js15 mg tablet (1 tabs)] {Co-Signature: ttb (Shayla Cain RN).} Route: PO; Signatures: Dispatcher [employer] EDMS May Blackburn, Reg Reg gb Ramakrishna Christiansen, DIRECTOR [employer] DIRECTOR [employer] Cordelia Albright RN RN hs1 Che Nguyen RN RN js15 Shannan Snider, Reg Reg ks16 Shayla Cain RN ttmaurice The chart was reviewed and I authenticate all verbal orders and agree with the evaluation and treatment provided.Attachments: 19:10 [facility] Payment Agreement [email or web address] 12/15 10:48 T-Sheet-- Draft Copy gb 10:49 ECG/EKG gb Chart Complete MTDD
--- NOTE | 2016-12-16 23:15 | EDDOCDS ---
Nurse's Notes [facility] Name: Susan Freeman Age: 86 yrs Sex: Female : 1930 Arrival Date: 12/14/2016 Time: 18:01 Bed 17 Private MD: Diagnosis: Fall on same level from slipping, tripping and stumbling;Contusion of left eyelid and periocular area;Contusion of lip;Contusion of nose Presentation: 12/14 18:04 Presenting complaint: EMS states: lightheaded while coming out of the bathroom and fell hs1 to the floor. Patient normally confused per family members at the house per EMS. Patient has black eye starting and bruising to left eye seen. Patient is not taking any blood thinners. Adult Sepsis Screening: The patient does not have new or worsening altered mentation. Patient's respiratory rate is less than 22. Systolic blood pressure is greater than 100. Patient has a qSOFA score of 0- Negative Sepsis Screen. Suicide/Homicide risk assessment- Unable to assess, the patient has an altered level of consciousness. Status: Patient is not a cash register servicer or dependent. Transition of care: patient was not received from another setting of care. 18:04 Acuity: KOFI Level 3 hs1 18:04 Method Of Arrival: Ambulance hs1 Triage Assessment: 18:14 General: Appears in no apparent distress, Behavior is cooperative. Pain: Unable to use hs1 pain scale. Does not appear to understand pain scale. Neurological: Level of Consciousness is awake, alert, obeys commands, Oriented to person, per family member patient history of Alzheimer's. Per family at bedside patient confused and having a spell of worsening confusion. . Respiratory: No deficits noted. Airway is patent Respiratory effort is even, unlabored, Respiratory pattern is regular, symmetrical. Derm: Bruising that is bright red, dark purple, on left eye, mouth and neck. Historical: - Allergies: No known drug Allergies; - Home Meds: 1. acetaminophen-codeine 300-30 mg Oral tab 1 tab nightly 2. fluoxetine 40 mg Oral cap 1 cap once daily 3. aspirin 81 mg Oral tab 1 tab once daily 4. levothyroxine 88 mcg Oral cap 1 cap nightly 5. quetiapine 50 mg oral tab 1 tab daily 6. Colace 100 mg oral cap 2 caps nightly 7. FiberCon 625 mg Oral tab 625 mg as needed - PMHx: Dementia; Thyroid problem; Arthritis; Alzheimers; - PSHx: Bladder suspension; Hysterectomy; - Social history: Smoking status: Patient states was never smoker of tobacco. No barriers to communication noted, The patient speaks fluent Tajik, Speaks appropriately for age. - Family history: Not pertinent. - : The pt / caregiver states he / she is not on anticoagulants. Home medication list is obtained from the patient, Unable to Verify Home Med List with the patient / caregiver. - Exposure Risk Screening:: None identified. Screenin:19 Screening information is obtained from family members. Fall risk: At risk due to age, hs1 apparent cognitive impairment, prior history of falls, The following interventions are performed due to a positive Fall Risk Screen: Fall Risk is added to Special Handling on the patient Summary Screen. A Fall Risk Bracelet was applied to the patient. Side Rails are placed in the up position. A Call Ballard is given with instruction to call for help when getting out of bed. Fall Alert bracelet is placed on the patient. Assistance ADL's: Requires assistance with meal preparation, this assistance is provided by family members, bathing, assistance is provided by family members, housework, assistance is provided by family members, medication administration, assistance is provided by family members. Abuse/DV Screen: The patient / caregiver reports he/she is: not in a situation that causes fear, pain or injury. Nutritional screening: No deficits noted. Advance Directives: Currently, there is a health care proxy, Federica Maxwell. home support is adequate. Assessment: 18:51 General: Appears in no apparent distress, Behavior is pleasant, confused. . Pain: hs1 Location: left eye and mouth. Respiratory: Airway is patent Respiratory effort is even, unlabored, Respiratory pattern is regular, symmetrical. Derm: Skin is pink, warm & dry. normal. 19:30 General: Appears in no apparent distress, Behavior is cooperative. Pain: Location: neck js15 and mouth and left eye; "all over" Pain currently is 6 out of 10 on a pain scale. Neurological: Level of Consciousness is awake, alert, confused, Oriented to person. Cardiovascular: Rhythm is regular. Respiratory: Airway is patent Respiratory effort is even, unlabored, Respiratory pattern is regular, symmetrical, Breath sounds are clear bilaterally. Derm: Skin is pink, warm & dry. Injury Description: Abrasion sustained to mouth Bruise sustained to left eye. 20:30 Reassessment: Patient appears in no apparent distress at this time. Pt resting on js15 stretcher with daughter at bedside; respirations even and unlabored; skin pink, warm, dry. 21:37 Reassessment: Patient appears in no apparent distress at this time. Pt awake and alert, js15 resting on stretcher, talking to daughter at bedside; respirations even and unlabored; skin pink, warm, dry. Vital Signs: 18:12 BP 144 / 60; Pulse 68; Resp 18; Pulse Ox 95% on R/A; Weight 72.57 kg; Height 5 ft. 8 hs1 in. (172.72 cm); 19:05 Pulse 64 MON; Pulse Ox 99% ; js15 19:06 BP 122 / 59 (auto/); js15 19:35 Pulse 64 MON; Pulse Ox 98% ; js15 19:36 BP 110 / 57 (auto/); js15 20:06 BP 126 / 57 (auto/); js15 20:06 Pulse 64 MON; Pulse Ox 99% ; js15 20:36 Pulse 64 MON; Pulse Ox 98% ; js15 20:36 BP 124 / 56 (auto/); js15 21:05 Pulse 66 MON; Pulse Ox 97% ; js15 21:06 BP 114 / 58 (auto/); js15 21:36 BP 125 / 61 (auto/); js15 21:36 Pulse 70 MON; Pulse Ox 99% ; js15 21:59 BP 117 / 58 (auto/); js15 22:00 Pulse 70 MON; Resp 20; Temp 98.2(O); Pulse Ox 99% ; Pain 6/10; js15 18:12 Body Mass Index 24.33 (72.57 kg, 172.72 cm) hs1 Vitals: 18:12 Log In Time N/A - ambulance arrival. hs1 ED Course: 18:02 Patient visited by Lili Conklin, Family Resource Coordinator. deg 18:02 Cordelia Smyth, ELIZABETH is Primary Nurse. deg 18:02 Patient moved to Waiting deg 18:02 Patient moved to 17 deg 18:08 [facility] ke 18:09 Triage Initiated hs1 18:10 Patient visited by Ramakrishna Christiansen FNP. ke 18:20 The patient / caregiver is instructed regarding the plan of care and ED course. hs1 18:25 Patient visited by Ramakrishna Christiansen FNP. ke 19:04 Patient visited by James Martinez PCA. kb5 19:10 [facility] Payment Agreement was scanned into Vdancer and attached to record. ks16 19:18 EKG done. (by ED staff). Reviewed by Ramakrishna MEEHAN. kb5 19:19 Patient visited by James Martinez PCA. kb5 19:25 CT Head Without Contrast Returned. EDMS 19:25 CT Maxilofacial W/out Contrast Returned. EDMS 19:25 CT Spine,Cervical W/o Contrast Returned. EDMS 19:30 Inserted saline lock: 20 gauge in right wrist. js15 19:48 Patient visited by Ramakrishna Christiansen FNP. ke 20:12 Patient visited by Ramakrishna Christiansen FNP. ke 20:35 Patient visited by Ramakrishna Christiansen FNP. ke 20:43 Primary Nurse role handed off by Cordelia Smyth RN kim 21:39 No procedures done that require assistance. js15 12/15 10:48 T-Sheet-- Draft Copy was scanned into Vdancer and attached to record. gb 10:49 ECG/EKG was scanned into [employer]dan[employer] and attached to record. gb 11:53 Chest, 1 View Returned. EDMS 21:37 EKG-ADULT Returned. EDMS Administered Medications: 12/14 19:56 Drug: morphine 2 mg [morphine 2 mg/mL intravenous cartridge (1 mL)] Route: IVP; Site: js15 right wrist; 19:57 Drug: Ondansetron 4 mg [ondansetron HCl 2 mg/mL intravenous solution (2 mL)] Route: js15 IVP; Site: right wrist; 21:34 Drug: morphine 2 mg [morphine 2 mg/mL intravenous cartridge (1 mL)] Route: IVP; Site: js15 right wrist; 21:40 Drug: HYDROcodone-acetaminophen 4 pack- 1 packets [hydrocodone 5 mg-acetaminophen 325 js15 mg tablet (1 tabs)] {Co-Signature: ttb (Shayla Cain RN).} Route: PO; Order Results: Lab Order: CBC with Diff; SPEC'M 12/14/16 20:02 Test: WHITE BLOOD COUNT; Value: 10.2; Range: 4.0-10.0; Abnormal: Above high normal; Units: K/mm3; Status: F Test: RED BLOOD COUNT; Value: 3.78; Range: 4.00-5.40; Abnormal: Below low normal; Units: M/mm3; Status: F Test: HEMOGLOBIN; Value: 11.7; Range: 12.0-16.0; Abnormal: Below low normal; Units: g/dl; Status: F Test: HEMATOCRIT; Value: 36.2; Range: 36.0-47.0; Units: %; Status: F Test: MEAN CORPUSCULAR VOLUME; Value: 95.7; Range: 80.0-96.0; Units: fl; Status: F Test: MEAN CORPUSCULAR HEMOGLOBIN; Value: 31.0; Range: 27.0-33.0; Units: pg; Status: F Test: MEAN CORPUSCULAR HGB CONC; Value: 32.4; Range: 32.0-36.5; Units: g/dl; Status: F Test: RED CELL DISTRIBUTION WIDTH; Value: 13.5; Range: 11.5-14.5; Units: %; Status: F Test: PLATELET COUNT, AUTOMATED; Value: 208; Range: 150-450; Units: k/mm3; Status: F Test: NEUTROPHILS %; Value: 81.4; Range: 36.0-66.0; Abnormal: Above high normal; Units: %; Status: F Test: LYMPH %; Value: 10.4; Range: 24.0-44.0; Abnormal: Below low normal; Units: %; Status: F Test: MONO %; Value: 5.1; Range: 0.0-5.0; Abnormal: Above high normal; Units: %; Status: F Test: EOS %; Value: 1.6; Range: 0.0-3.0; Units: %; Status: F Test: BASO %; Value: 0.5; Range: 0.0-1.0; Units: %; Status: F Test: LARGE UNSTAINED CELL %; Value: 1.1; Range: 0.0-4.0; Units: %; Status: F Test: NEUTROPHILS #; Value: 8.3; Range: 1.8-7.7; Abnormal: Above high normal; Units: K/mm3; Status: F Test: LYMPH #; Value: 1.2; Range: 1.5-4.5; Abnormal: Below low normal; Units: K/mm3; Status: F Test: MONO #; Value: 0.5; Range: 0.0-0.8; Units: K/mm3; Status: F Test: EOS #; Value: 0.2; Range: 0.0-0.50; Units: K/mm3; Status: F Test: BASO #; Value: 0.0; Range: 0.0-0.2; Units: K/mm3; Status: F Test: LARGE UNSTAINED CELL #; Value: 0.1; Range: 0.0-0.4; Units: K/mm3; Status: F Lab Order: Cardiac Injury Profile; SPEC'M 12/14/16 20:02 Test: CPK CREATINE PHOSPHOKINASE; Value: 57; Range: 26-192; Units: U/L; Status: F Test: CK-MB VALUE MASS; Value: 1.9; Range: 0.0-3.6; Units: NG/ML; Status: F Test: MB/CK RELATIVE INDEX; Value: 3.33; Range: < OR =4; Status: F Test Note: ; DIAGNOSIS CRITERIA MMB ng/ml Relative Index (RI) NON-AMI < or = 5 N/A [place]H [place]ONE > 5 < or = 4 AMI > 5 > 4 Lab Order: Liver Profile; SPEC'M 12/14/16 20:02 Test: AST/SGOT; Value: 20; Range: 15-37; Units: U/L; Status: F Test: ALT/SGPT; Value: 21; Range: 12-78; Units: U/L; Status: F Test: ALKALINE PHOSPHATASE; Value: 121; Range: 45-117; Abnormal: Above high normal; Units: U/L; Status: F Test: BILIRUBIN,TOTAL; Value: 0.4; Range: 0.2-1.0; Units: MG/DL; Status: F Test: BILIRUBIN,DIRECT; Value: < 0.1; Range: 0.0-0.2; Units: MG/DL; Status: F Test: TOTAL PROTEIN; Value: 6.3; Range: 6.4-8.2; Abnormal: Below low normal; Units: GM/DL; Status: F Test: ALBUMIN; Value: 3.5; Range: 3.2-5.2; Units: GM/DL; Status: F Test: ALBUMIN/GLOBULIN RATIO; Value: 1.25; Range: 1.00-1.93; Status: F Lab Order: MED Profile; SPEC'M 12/14/16 20:02 Test: GLUCOSE, FASTING; Value: 107; Range: 83-110; Units: MG/DL; Status: F Test: BLOOD UREA NITROGEN; Value: 25; Range: 7-18; Abnormal: Above high normal; Units: MG/DL; Status: F Test: CREATININE FOR GFR; Value: 1.18; Range: 0.55-1.02; Abnormal: Above high normal; Units: MG/DL; Status: F Test: GLOMERULAR FILTRATION RATE; Value: 46.1; Range: >32; Status: F Test: SODIUM LEVEL; Value: 143; Range: 136-145; Units: MEQ/L; Status: F Test: POTASSIUM SERUM; Value: 4.7; Range: 3.5-5.1; Units: MEQ/L; Status: F Test: CHLORIDE LEVEL; Value: 109; Range: 98-107; Abnormal: Above high normal; Units: MEQ/L; Status: F Test: CARBON DIOXIDE LEVEL; Value: 25; Range: 21-32; Units: MEQ/L; Status: F Test: ANION GAP; Value: 9; Range: 8-16; Units: MEQ/L; Status: F Test: CALCIUM LEVEL; Value: 9.8; Range: 8.8-10.2; Units: MG/DL; Status: F Test Note: ; Units are mL/min/1.73 m2 Chronic Kidney Disease Staging per NKF: Stage I & II GFR >=60 Normal to Mildly Decreased Stage III GFR 30-59 Moderately Decreased Stage IV GFR 15-29 Severely Decreased Stage V GFR <15 Very Little GFR Left ESRD GFR <15 on PACKAGING ASSOCIATE Lab Order: Thyroid Stimulating Hormone; SPEC'M 12/14/16 20:02 Test: THYROID STIMULATING HORMONE; Value: 0.747; Range: 0.358-3.740; Units: uIU/ML; Status: F Lab Order: Troponin; SPEC'M 12/14/16 20:02 Test: TROPONIN I; Value: < 0.02; Range: < 0.10; Units: NG/ML; Status: F Test Note: ; Troponin I Reference Interval for Siemens [place] LOCI: 99th Percentile= 0.00-0.045 ng/ml Risk Stratification: <= 0.10 ng/ml Decreased Risk for Adverse Clinical Events. 0.10-1.50 ng/ml Increased Risk for Adverse Clinical Events. Evaluation of additional criterion and/or repeat testing in 2-6 hours is suggested to rule out myocardial damage. >= 1.50 ng/ml Indicative of Myocardial Injury. Lab Order: PT/INR; [facility] 12/14/16 20:02 Test: PROTHROMBIN TIME; Value: 12.6; Range: 12.3-14.5; Units: SECONDS; Status: F Test: INR; Value: 0.93; Status: F Test Note: ; THERAPUTIC HUMAN INR VALUES INDICATIONS NORMAL RANGES PROPHYLAXIS/TREATMENT OF: VENOUS THROMBOSIS 2.0-3.0 PULMONARY EMBOLISM 2.0-3.0 PREVENTION OF SYSTEMIC EMBOLISM FROM: TISSUE HEART VALVES 2.0-3.0 ACUTE MYOCARDIAL INFARCTION 2.0-3.0 VALVULAR HEART DISEASE 2.0-3.0 ATRIAL FIBRILLATION 2.0-3.0 MECHANICAL VALVES(HIGH RISK) 2.5-3.5 RECURRENT MYOCARDIAL INFARCTION 2.5-3.5 Lab Order: Fingerstick Blood Sugar; [facility] 12/14/16 19:45 Test: BEDSIDE GLUCOSE; Value: 92; Range: 83-110; Units: MG/DL; Status: F Radiology Order: CT Head Without Contrast Test: CT Head Without Contrast REASON FOR EXAMINATION: Trauma; ; CLINICAL HISTORY: Trauma.; TECHNIQUE: Multiple axial CT images were obtained through the brain without IV contrast material.; COMMENTS:; There is normal configuration of sella turcica. There are no intra or extra-axial collections. There; is no mass effect or midline shift. There is no evidence of hematoma formation. No hydrocephalus is p; resent. The ventricles are symmetrical. No abnormal calcifications are present.; There is diffuse age-appropriate cerebellar and cerebral atrophy with proportionally dilated ventricl; es and cortical sulci.; There are bilateral confluent periventricular and subcortical white matter hypolucencies compatible w; ith chronic microvascular disease.; Otherwise, no significant focal abnormalities are seen either in the posterior fossa or supratentoria; l compartment.; IMPRESSION:; 1. Cerebellar and cerebral atrophy.; 2. Chronic microvascular disease.; 3. No evidence of acute intracranial pathology.; Thank you for your kind referral of this patient.; ; ; Radiology Order: Chest, 1 View Test: Chest, 1 View REASON FOR EXAMINATION: Trauma; Clinical: Trauma .; ; Comparison: 11/26/2011 .; ; Technique: PA.; ; Findings:; The mediastinum and cardiac silhouette are normal. The lung hernandes are clear and; without acute consolidation, effusion, or pneumothorax. The skeletal structures; are intact and normal.; ; Impression:; 1. No acute cardiopulmonary process.; ; ; Signed by; Ever Hernandez MD 12/15/2016 02:46 A; Radiology Order: EKG-ADULT Test: EKG-ADULT REASON FOR EXAMINATION: fall; Stationary ECG Study; [facility] - ED; ; Test Date: 2016-12-14; Pat Name: SUSAN FREEMAN Department:; Room: -; Gender: F Car Blocker: KB; : 1930 Requested By: RAMAKRISHNA MEEHAN; Order Number: [id number] Reading MD: Jessica Love; Measurements; Intervals [place]; Rate: 69 P: 39; MA: 168 QRS: -7; QRSD: 89 T: 45; QT: 382; QTc: 410; Interpretive Statements; SINUS RHYTHM; NSTTW ABNORMALITY; BASELINE ARTIFACT LIMITS INTERPRETATION; Electronically Signed On 12-15-2016 20:49:55 EST by Jessica Love; Radiology Order: CT Maxilofacial W/out Contrast Test: CT Maxilofacial W/out Contrast REASON FOR EXAMINATION: Trauma; ; HISTORY: Trauma.; TECHNIQUE: Multiple thin section helically-acquired axially-displayed and helically acquired coronall; y displayed computed tomographic images of the face are obtained from the mandible through the fronta; l sinuses, with images obtained at soft tissue and bone window. 2D reformatted images were performed.; ; FINDINGS:; Normal bony mineralization. No fractures. Left cheek swelling is seen.; Normal orbits.; Left maxillary sinusitis is seen. Normal, clear paranasal sinuses otherwise.; Normal oral and nasal cavities.; Normal infratemporal fossa and deep parapharyngeal spaces with normal muscles of mastication. Normal; parotid and submandibular glands.; IMPRESSION:; Left cheek swelling is seen.; Left maxillary sinusitis; Thank you for your kind referral of this patient; ; Radiology Order: CT Spine,Cervical W/o Contrast Test: CT Spine,Cervical W/o Contrast REASON FOR EXAMINATION: Trauma; ; CLINICAL HISTORY: Neck pain. Trauma; TECHNIQUE: Multiple axial images were obtained through the cervical spine. Images were also reconstru; cted in coronal and sagittal planes. The study was performed without IV contrast.; COMMENTS:; There is no fracture or spondylolisthesis visualized. The paraspinal soft tissues are unremarkable. T; here are no lytic or blastic lesions.; Straightening of cervical lordosis is seen, suggesting muscular spasm. There is evidence of multileve; l disk disease, demonstrated by this is most severe at C3-C4 and C5-6 where more moderate loss of dis; c side present and broad-based posterior disc is convex is seen producing moderate to severe bilatera; l foraminal and canal stenosis osteophytosis and endplate sclerosis.; IMPRESSION:; 1. No fracture or spondylolisthesis.; 2. Straightening of cervical lordosis is seen, suggesting muscular spasm.; 3. Multilevel spondylosis most severe at C3-C4 and C5-6.; Thank you for your kind referral of this patient.; ; Outcome: 20:52 Discharge ordered by Provider. ke 21:38 Discharge Assessment: Patient awake and alert. patient administered narcotics - yes. Pt js15 provided with safe discharge. The following High Risk Discharge criteria are identified: None. Discharged to home via wheelchair, with family. Condition: unchanged. Discharge instructions given to patient, daughter Instructed on discharge instructions, follow up and referral plans. medication usage, no driving heavy equipment, Rest, Ice, Compression and Elevation. Demonstrated understanding of instructions, medications, Pt was receptive of discharge instructions/ teaching. Prescriptions given X 1. CT Study completed. Property sent home with patient. 22:14 Patient left the ED. js15 Signatures: Dispatcher [employer] EDMS Lili Conklin, Family Resource Coordinator Unit deg May Blackburn, Reg Reg gb Ramakrishna Christiansen, MACHINE I COREMAKER MACHINE I COREMAKER James Sage, ENTRY LEVEL ENTRY LEVEL kb5 Cordelia Smyth, RN RN hs1 Mia Damon, ENTRY LEVEL ENTRY LEVEL Che Almendarez,RN RN js15 Shannan Snider, Reg Reg ks16 Shayla Cain RN ttb Chart Complete MTDD
== END 2016-12-14 22:14 | disposition home or self-care (01) ==
LOC: M ED 18:01
DX: S00.83XA Contusion of other part of head, initial encounter (principal); S00.81XA Abrasion of other part of head, initial encounter; W01.0XXA Fall on same level from slipping, tripping and stumbling without subsequent striking against object, initial encounter; Y92.091 Bathroom in other non-institutional residence as the place of occurrence of the external cause; Y93.89 Activity, other specified; Y99.8 Other external cause status; E07.9 Disorder of thyroid, unspecified; G30.9 Alzheimer's disease, unspecified; F02.80 Dementia in other diseases classified elsewhere, unspecified severity, without behavioral disturbance, psychotic disturbance, mood disturbance, and anxiety; M19.90 Unspecified osteoarthritis, unspecified site; Z79.899 Other long term (current) drug therapy; Z79.82 Long term (current) use of aspirin; Z79.891 Long term (current) use of opiate analgesic
CPT/HCPCS: 36415; 70450; 70486; 71010; 72125; 80048; 80076; 82550; 82553; 84443; 84484; 85025; 85610; 93005; 93041; 96374; 96375; 96376; 99284; J2405